=== PATIENT | female | born 1945 | race Caucasian/White ===

== ENCOUNTER 2016-06-19 08:47 | Day surgery (SDC) | payer MEDICARE, BC ==
[2016-06-19] MEDS: KETOROLAC 0.45% OPHTH DROPS OPTH ONE (09:15)
[2016-06-19] MEDS: TROPICAMIDE 1% OPHTH 2 ML DROPS OPTH ONE (09:15)
[2016-06-19] MEDS: CYCLOPENTOLATE 1% OPHTH DROPS 2 ML OPTH ONE (09:15)
[2016-06-19] MEDS: LACTATED RINGERS 500 ML IV ONE (09:21)
[2016-06-19] MEDS ORDERED: LIDOCAINE-MPF 2% 5 ML VIAL IM ONE (10:10)
[2016-06-19] MEDS ORDERED: PROPOFOL 200 MG/20 ML VIAL IVP ONE (10:10)
[2016-06-19] MEDS ORDERED: MIDAZOLAM 2 MG/2 ML VIAL IVP ONE (10:10)
[2016-06-19] MEDS: PROPARACAINE 0.5% OPHTH DROPS 15 ML OPTH ONE (10:20)
[2016-06-19] MEDS: levoFLOXacin 0.5% OPHTH DROPS 5 ML OPTH ONE (10:20)
[2016-06-19] MEDS: CHONDR SULF/HYALURONATE SYRINGE IO ONE (10:20)
[2016-06-19] MEDS: EPINEPHrine 1 MG/ML AMP IO ONE (10:20)
[2016-06-19] MEDS: BRIMONIDINE 0.2% OPHTH DROPS 5 ML OPTH ONE (10:20)
[2016-06-19] MEDS: TETRACAINE OPHTH DROPS 2 ML OPTH ONE (10:20)
[2016-06-19] MEDS: BSS/LIDOCAINE/EPINEPHRINE 1 ML SYRINGE IO ONE (10:20)
[2016-06-19 10:56] VITALS: BP 153/86
--- NOTE | 2016-06-19 13:39 | OPERATIVE REPORT ---
DATE OF SURGERY: 06/19/2016 00:00:00 PREOPERATIVE DIAGNOSIS: Visually significant cataract, right eye. POSTOPERATIVE DIAGNOSIS: Visually significant cataract, right eye. NAME OF PROCEDURE: Cataract extraction with intraocular lens implant, right eye. SURGEON: Daniel Clemons MD. ANESTHESIA: Topical with IV sedation. ESTIMATED BLOOD LOSS: None. COMPLICATIONS: None. LENS USED: AU00T0, 25.0 diopter lens, serial #[id number]. OPERATIVE TECHNIQUE: This is a patient who suffers from a visually significant cataract in the right eye. Operative site was marked, and informed consent was reviewed in the preoperative area. The patie nt was then taken back to the operating room in stable condition, where a time-out was performed. Pro paracaine eyedrops were placed in each of the eyes, and the right eye was prepped and draped in the u sual sterile ophthalmic fashion. A paracentesis wound was made, and the anterior chamber was filled with epinephrine Shugarcaine. The anterior chamber was then filled with viscoelastic. A 2.4 mm blade was used to make a corneal incisio n at the temporal position. A bent cystotome was used to start a capsulorrhexis, and Utrata forceps w ere used to create a continuous curvilinear capsulorrhexis. BSS on a blunt-tipped cannula was used to hydrodissect the nucleus from the capsular bag. Phacoemulsification was used to divide the nucleus i nto quadrants and each of the quadrants removed using phacoemulsification. Irrigation and aspiration was used to remove the residual cortex, and the capsular bag was polished with the silicone I/A tip. Capsular bag was filled with viscoelastic, and an AU00T0, 25.0 diopter lens, serial #[id number] was injected in the capsular bag. The lens was centered based on the corneal light reflex and irrigation and aspiration was used to remove the residual viscoelastic. The anterior chamber was filled with bal anced salt solution, and the centration of the lines was double checked. Wounds were hydrated and pro german to be watertight. A drop of ofloxacin and a drop of brimonidine were placed in the operative eye. A shield was placed over the eye, and the patient was taken to postoperative care in stable conditio n. JOB #: [id number] EXT JOB #:[id number]
== END 2016-06-19 08:48 | disposition home or self-care (01) ==
LOC: SDS 08:47
PROVIDERS: ATTEND Ophthalmology
PROC: 08RJ3JZ Replacement of Right Lens with Synthetic Substitute, Percutaneous Approach (ICD-10-PCS; principal; 2016-06-19 09:45)
DX: H26.8 Other specified cataract (principal); E66.9 Obesity, unspecified; M19.90 Unspecified osteoarthritis, unspecified site; L30.9 Dermatitis, unspecified

== ENCOUNTER 2016-07-03 09:30 | Day surgery (SDC) | payer MEDICARE, BC ==
[2016-07-03] MEDS ORDERED: LACTATED RINGERS 500 ML IV ONE (09:35)
[2016-07-03] MEDS ORDERED: KETOROLAC 0.45% OPHTH DROPS OPTH ONE (09:45)
[2016-07-03] MEDS ORDERED: CYCLOPENTOLATE 1% OPHTH DROPS 2 ML OPTH ONE (09:45)
[2016-07-03] MEDS ORDERED: TROPICAMIDE 1% OPHTH 2 ML DROPS OPTH ONE (09:45)
[2016-07-03] MEDS ORDERED: PROPOFOL 200 MG/20 ML VIAL IVP ONE (10:15)
[2016-07-03] MEDS ORDERED: LIDOCAINE-MPF 2% 5 ML VIAL IM ONE (10:15)
[2016-07-03] MEDS ORDERED: MIDAZOLAM 2 MG/2 ML VIAL IVP ONE (10:15)
[2016-07-03] MEDS ORDERED: EPINEPHrine 1 MG/ML AMP IO ONE (10:18)
[2016-07-03] MEDS ORDERED: PROPARACAINE 0.5% OPHTH DROPS 15 ML OPTH ONE (10:18)
[2016-07-03] MEDS ORDERED: BRIMONIDINE 0.2% OPHTH DROPS 5 ML OPTH ONE (10:18)
[2016-07-03] MEDS ORDERED: TETRACAINE OPHTH DROPS 2 ML OPTH ONE (10:19)
[2016-07-03] MEDS ORDERED: levoFLOXacin 0.5% OPHTH DROPS 5 ML OPTH ONE (10:19)
[2016-07-03] MEDS ORDERED: CHONDR SULF/HYALURONATE SYRINGE IO ONE (10:19)
[2016-07-03] MEDS ORDERED: BSS/LIDOCAINE/EPINEPHRINE 1 ML SYRINGE IO ONE (10:19)
== END 2016-07-03 09:31 | disposition home or self-care (01) ==
PROC: 08RK3JZ Replacement of Left Lens with Synthetic Substitute, Percutaneous Approach (ICD-10-PCS; principal; 2016-07-03 10:30)
DX: H26.9 Unspecified cataract (principal); E66.9 Obesity, unspecified; Z68.41 Body mass index [BMI] 40.0-44.9, adult; M19.90 Unspecified osteoarthritis, unspecified site
CPT/HCPCS: 66984; V2632

== ENCOUNTER 2016-10-29 08:52 | Outpatient (CLI) | payer MEDICARE, BC ==
--- NOTE | 2016-10-30 15:11 | DEXA Report ---
DEXA SCAN: 10/29/2016 CLINICAL HISTORY: A 71-year-old female, postmenopausal. Patient had a hysterectomy at age 50. TECHNIQUE: Dual energy x-ray absorptiometry (DXA) was performed on a [employer] system. Regions measured are the AP spine, femoral neck, and, if needed, forearm. COMPARISON: . In accordance with the International Society for Clinical Densitometry (ISCD) guidelines, data from previous exams may be reanalyzed using current recommendations and techniques. This is done to allow a more accurate basis for comparison with the current study. FINDINGS: The data for the lumbar spine is as follows: REGION BMD (g/cm/cm) T-SCORE Z-SCORE L1 0.960 -1.4 -0.9 L2 1.126 -0.6 -0.1 L3 1.162 -0.3 0.2 L4 1.213 0.1 0.7 TOTAL 1.122 -0.5 0.1 NOTE: All evaluable vertebrae are used for classification. The data for the hip is as follows: REGION BMD (g/cm/cm) T-SCORE Z-SCORE Neck 0.824 -1.5 -0.5 TOTAL 1.046 0.3 1.0 NOTE: The femoral neck or total proximal femur, whichever is lowest, is used for classification. * Denotes significant change at the 95% confidence level. Denotes dissimilar scan types or analysis methods. FINDINGS: Patient's bone mineral density is consistent with osteopenia. IMPRESSION: OSTEOPENIA. MILD INCREASED FRACTURE RISK. RECOMMENDATION: Patients with diagnosis of osteoporosis or osteopenia should have regular bone mineral density assessment. For those eligible for Medicare, routine testing is allowed once every 2 years. Testing frequency can be increased for patients who have rapidly progressing disease or for those who are receiving medical therapy to restore bone mass. COMMENT: World Health Organization (WHO) definitions for osteoporosis and osteopenia: NORMAL BMD: T-score at -1.0 or higher, fracture risk is low. OSTEOPENIA BMD: T-score between -1.0 and -2.5, fracture risk is increased. OSTEOPOROSIS BMD: T-score at -2.5 or lower, fracture risk high. National Osteoporosis Foundation recommends: 1. Obtain adequate dietary calcium (at least 1200 mg per day) and vitamin D (400 -800 international units per day). 2. Participate, as appropriate, in regular weightbearing and muscle- strengthening exercise. 3. Avoid tobacco use and reduce alcohol and caffeine intake. 4. For more detailed information see the website at www.NOF.org. MTDD
== END 2016-10-29 08:53 | disposition home or self-care (01) ==
LOC: DI 08:52
PROVIDERS: ATTEND Physician Assistant Medical
DX: M85.88 Other specified disorders of bone density and structure, other site (principal)
CPT/HCPCS: 77080

== ENCOUNTER 2016-10-29 08:54 | Outpatient (CLI) | payer MEDICARE, BC | END 2016-10-29 08:55 | disposition home or self-care (01) | LOC: DI 08:54 | PROVIDERS: ATTEND Physician Assistant Medical | DX: Z53.9 Procedure and treatment not carried out, unspecified reason (principal) ==

== ENCOUNTER 2016-12-16 14:19 | Outpatient (CLI) | payer MEDICARE, BC ==
--- NOTE | 2016-12-17 21:37 | Mammography Report ---
DIGITAL SCREENING MAMMOGRAM: 12/16/2016 CLINICAL INDICATION: A 71-year-old with history of benign left breast biopsy for screening. COMPARISON: 11/2015, 10/2014, 10/2013, 08/2012, 08/2011, 08/2010, 07/2009, 07/2008. TECHNIQUE: Routine CC and MLO projections were obtained of the breasts. FINDINGS: Parenchymal tissue within the breasts is predominantly fatty replaced. There are no domin ant masses, suspicious microcalcifications, or secondary signs of malignancy. In comparison to the p revious studies, there are no significant changes. IMPRESSION: NO MAMMOGRAPHIC EVIDENCE OF MALIGNANCY. NO SIGNIFICANT INTERVAL CHANGES. RECOMMENDATION: Screening mammography is recommended annually. BIRADS category 1 - negative. STANDARD QUALIFYING STATEMENTS 1. This examination was reviewed with the aid of Computed-Aided Detection (CAD). 2. A negative or benign imaging report should not delay biopsy if clinically suspicious findings are present. Consider surgical consultation if warranted. More than 5% of cancers are not identified b y imaging. 3. Dense breasts may obscure an underlying neoplasm. JOB #: [id number] EXT JOB #:[id number]
== END 2016-12-16 14:20 | disposition home or self-care (01) ==
LOC: DI.N 14:19
PROVIDERS: ATTEND Physician Assistant Medical
DX: Z12.31 Encounter for screening mammogram for malignant neoplasm of breast (principal)
CPT/HCPCS: 77067

== ENCOUNTER 2019-03-02 10:21 | Outpatient (CLI) | payer MEDICARE, BC ==
--- NOTE | 2019-03-03 08:57 | Mammography Report ---
Reason: SCREENING MAMMO Procedure Date: 03/02/2019 Accession Number: [id number] / [id number] Procedure: MGN - Screening Mammo Dig Bilat CPT Code: FULL RESULT: EXAM: Screening Mammo Dig Bilat DATE: 03/02/2019 10:56 AM CLINICAL HISTORY: Screening encounter. History of benign left breast biopsy. TECHNIQUE: (B) - Bilateral CC and MLO views were obtained. COMPARISON: 12/16/2016 through 10/22/2013. PARENCHYMAL PATTERN: (F) - The breast(s) demonstrate(s) diffuse fatty replacement. FINDINGS: Postsurgical changes in the left breast are stable. There are no suspicious masses, calcifications, or areas of distortion. IMPRESSION: Benign findings. BI-RADS category 2. RECOMMENDATION: (ANNUAL) - Recommend routine annual screening mammography. BI-RADS CATEGORY: (2) - Benign Findings. STANDARD QUALIFYING STATEMENTS: 1. This examination was not reviewed with the aid of Computer-Aided Detection (CAD). 2. A negative or benign imaging report should not preclude biopsy if clinically suspicious findings are present. 3. Dense breasts may obscure an underlying neoplasm. 4. This examination was reviewed without the aid of 3D breast imaging (tomosynthesis).
== END 2019-03-02 10:22 | disposition home or self-care (01) ==
LOC: DI.N 10:21
DX: Z12.31 Encounter for screening mammogram for malignant neoplasm of breast (principal)
CPT/HCPCS: 77067

== ENCOUNTER 2019-03-03 09:36 | Outpatient (CLI) | payer MEDICARE, BC ==
--- NOTE | 2019-03-04 08:38 | DEXA Report ---
Reason: BONE DISORDER Procedure Date: 03/03/2019 Accession Number: [id number] / [id number] Procedure: DEX - Dexa Spine and/or Hip CPT Code: FULL RESULT: EXAM: Dexa Spine and/or Hip DATE: 03/03/2019 10:10 AM CLINICAL HISTORY: BONE DISORDER TECHNIQUE: Dual energy x-ray absorptiometry (DXA) was performed on a [employer] System. Regions measured are the AP Spine, femoral neck, and if needed forearm. COMPARISON: 10/29/2016. In accordance with the International Society for Clinical Densitometry (ISCD) guidelines, data from previous exams may be reanalyzed using current recommendations and techniques. This is done to allow a more accurate basis for comparison with the current study. FINDINGS: The data for the lumbar spine is as follows: BMD (g/cm/cm) T-SCORE Z-SCORE REGION L1 1.010 -1.0 -0.4 L2 1.129 -0.6 0.1 L3 1.245 0.4 1.0 L4 1.277 0.6 1.3 TOTAL 1.178 0.0 0.6 NOTE: All evaluable vertebrae are used for classification The data for the hip is as follows: BMD (g/cm/cm) T-SCORE Z-SCORE REGION Neck 0.884 -1.1 0.1 TOTAL 1.040 0.3 1.1 NOTE: The femoral neck or total proximal femur, whichever is lowest, is used for classification. DXA RESULTS SUMMARY: Spine SCAN DATE AGE BMD CHANGE VS CHANGE VS PREVIOUS PREVIOUS % [birth year]03/2019 [age] 1.178 0.056* 5.0* 10/29/2016 [age] 1[age]122 * Denotes significant change at the 95% confidence level. Denotes dissimilar scan types or analysis methods. DXA RESULTS SUMMARY: Hip SCAN DATE AGE BMD CHANGE VS CHANGE VS PREVIOUS PREVIOUS % [birth year]03/2019 [age] 1.040 -0.006 -0.6 10/29/2016 [age] 1.046 * Denotes significant change at the 95% confidence level. Denotes dissimilar scan types or analysis methods. IMPRESSION: THE WHO CLASSIFICATION BASED ON THE INTERNATIONAL REFERENCE STANDARD IS OSTEOPENIA. THE FRACTURE RISK IS INCREASED. RECOMMENDATION: Patients with diagnosis of osteoporosis or osteopenia should have regular bone mineral density assessment. For those eligible for Medicare, routine testing is allowed once every 2 years. Testing frequency can be increased for patients who have rapidly progressing disease or for those who are receiving medical therapy to restore bone mass. COMMENT: World Health Organization (WHO) definitions for osteoporosis and osteopenia: NORMAL BMD: T-score at -1.0 or higher, fracture risk is low OSTEOPENIA BMD: T-score between -1.0 and -2.5, fracture risk is increased. OSTEOPOROSIS BMD: T-score at -2.5 or lower, fracture risk is high. National Osteoporosis Foundation recommends: 1. Obtain adequate dietary calcium (at least 1200 mg per day) and vitamin D (400-800 international units per day). 2. Participate, as appropriate, in regular weightbearing and muscle-strengthening exercise. 3. Avoid tobacco use and reduce alcohol and caffeine intake. 4. For more detailed information see the website at www.NOF.org.
== END 2019-03-03 09:37 | disposition home or self-care (01) ==
LOC: DI 09:36
PROVIDERS: ATTEND Physician Assistant Medical
DX: M85.89 Other specified disorders of bone density and structure, multiple sites (principal)
CPT/HCPCS: 77080

== ENCOUNTER 2020-02-10 09:13 | Outpatient (CLI) | payer MEDICARE, BC ==
--- NOTE | 2020-02-10 12:19 | Mammography Report ---
BILATERAL DIGITAL SCREENING MAMMOGRAM 3D/2D: 02/10/2020 CLINICAL: Routine screening. Comparison is made to exams dated: 03/02/2019 mammogram, 12/16/2016 mammogram, 12/04/2015 mammogram, an d 11/02/2014 mammogram - [facility]. The tissue of both breasts is predominantly fa tty. No significant masses, calcifications, or other findings are seen in either breast. There has been no significant interval change. IMPRESSION: NEGATIVE There is no mammographic evidence of malignancy. A 1 year screening mammogram is recommended. This exam was interpreted at Station ID: [id number]. NOTE: For mammograms, a report in lay terms will be sent to the patient. Approximately 15% of breast malignancies will not be visualized mammographically. In the management of a palpable breast mass, a negative mammogram must not discourage biopsy of a clinically suspicious lesion. Electronically Signed By: Jaret Garcia M.D. aty/penrad:02/10/2020 11:07:39 ACR BI-RADS Category 1: Negative 3341F PARENCHYMAL PATTERN: (F) - The breast(s) demonstrate(s) diffuse fatty replacement. BI-RADS CATEGORY: (1) - 1 RECOMMENDATION: (ANNUAL) - Recommend routine annual screening mammography. [id number] 1 year screening LATERALITY: (B)
== END 2020-02-10 09:14 | disposition home or self-care (01) ==
LOC: DI.N 09:13
DX: Z12.31 Encounter for screening mammogram for malignant neoplasm of breast (principal)
CPT/HCPCS: 77063; 77067

== ENCOUNTER 2021-02-08 10:19 | Outpatient (CLI) | payer MEDICARE, BC ==
--- NOTE | 2021-02-09 12:21 | Mammography Report ---
BILATERAL DIGITAL SCREENING MAMMOGRAM 3D/2D: 02/08/2021 CLINICAL: Routine screening. Comparison is made to exams dated: 02/10/2020 mammogram, 03/02/2019 mammogram, 12/16/2016 mammogram, 11/08 mammogram, 11/02/2014 mammogram, and 10/22/2013 mammogram - [facility]. The t issue of both breasts is predominantly fatty. No significant masses, calcifications, or other findings are seen in either breast. There has been no significant interval change. IMPRESSION: NEGATIVE There is no mammographic evidence of malignancy. A 1 year screening mammogram is recommended. This exam was interpreted at Station ID: [id number]. NOTE: For mammograms, a report in lay terms will be sent to the patient. Approximately 15% of breast malignancies will not be visualized mammographically. In the management of a palpable breast mass, a negative mammogram must not discourage biopsy of a clinically suspicious lesion. Electronically Signed By: Jaret Garcia M.D. aty/jerome:02/08/2021 13:12:52 ACR BI-RADS Category 1: Negative 3341F PARENCHYMAL PATTERN: (F) - The breast(s) demonstrate(s) diffuse fatty replacement. BI-RADS CATEGORY: (1) - 1 RECOMMENDATION: (ANNUAL) - Recommend routine annual screening mammography. [id number] 1 year screening LATERALITY: (B)
== END 2021-02-08 10:20 | disposition home or self-care (01) ==
LOC: DI.N 10:19
DX: Z12.31 Encounter for screening mammogram for malignant neoplasm of breast (principal)

== ENCOUNTER 2023-04-28 09:18 | Outpatient (CLI) | payer MEDICARE, BC ==
--- NOTE | 2023-04-30 15:37 | Mammography Report ---
BILATERAL DIGITAL SCREENING MAMMOGRAM 3D/2D: 04/28/2023 CLINICAL: Routine screening. Comparison is made to exams dated: 04/22/2022 mammogram, 02/08/2021 mammogram, 02/10/2020 mammogram, 02/08 mammogram, 12/16/2016 mammogram, and 12/04/2015 mammogram - Located within [facility]. Both breasts are almost entirely fatty (category a/<25% glandular tissue). No significant masses, calcifications, or other findings are seen in either breast. IMPRESSION: NEGATIVE There is no mammographic evidence of malignancy. A 1 year screening mammogram is recommended. Based on the Tyrer Cuzick model (a risk assessment model) the patients lifetime risk is 3.5% and her 10 year risk is 0.0%. According to the ACR, ACS, and NCCN guidelines, an annual breast MRI exam richard g with mammogram is recommended if the patients lifetime risk is 20% or greater. This exam was interpreted at Station ID: [id number]. NOTE: For mammograms, a report in lay terms will be sent to the patient. Approximately 15% of breast malignancies will not be visualized mammographically. In the management of a palpable breast mass, a negative mammogram must not discourage biopsy of a clinically suspicious lesion. Electronically Signed By: Lavinia Anne M.D., PH.D eb/penrad:04/29/2023 23:28:42 letter sent: No_Letter ACR BI-RADS Category 1: Negative 3341F PARENCHYMAL PATTERN: (F) - The breast(s) demonstrate(s) diffuse fatty replacement. BI-RADS CATEGORY: (1) - 1 Mammogram [id number] 1 year screening LATERALITY: (B)
== END 2023-04-28 09:19 | disposition home or self-care (01) ==
LOC: DI.N 09:18
DX: Z12.31 Encounter for screening mammogram for malignant neoplasm of breast (principal)

== ENCOUNTER 2023-08-26 09:24 | Outpatient (CLI) | payer MEDICARE, BC ==
[2023-08-26 12:11] LABS: EOSINOPHILS # (AUTO) 0.1 10^3/uL (0.0-0.7); EOSINOPHILS % (AUTO) 2.2 %; HCT - HEMATOCRIT 47.4 % (37.0-47.0); HGB - HEMOGLOBIN 14.7 g/dL (12.0-16.0); LYMPHOCYTES # (AUTO) 1.8 10^3/uL (1.5-3.5); LYMPHOCYTES % (AUTO) 42.2 %; MEAN CORPUSCULAR HEMOGLOBIN 28.9 pg (27.0-31.0); MEAN CORPUSCULAR VOLUME 93.1 fL (81.0-99.0); MEAN PLATELET VOLUME 10.7 fL (7.9-10.8); MONOCYTES # (AUTO) 0.6 10^3/uL (0.0-1.0); MONOCYTES % (AUTO) 13.7 %; NEUTROPHILS # (AUTO) 1.7 10^3/uL (1.5-6.6); NEUTROPHILS % (AUTO) 40.4 %; PLT - PLATELET COUNT 244 10^3/uL (130-450); RED BLOOD COUNT 5.09 10^6/uL (4.20-5.40); RED CELL DISTRIBUTION WIDTH 14.5 % (12.0-15.0); WHITE BLOOD COUNT 4.2 x10^3/uL (4.8-10.8)
[2023-08-26 12:30] LABS: ALBUMIN 4.5 g/dL (3.2-5.5); ALBUMIN/GLOBULIN RATIO 1.4 (1.0-2.2); ALKALINE PHOSPHATASE 49 IU/L (42-121); ALT ALANINE AMINOTRANSFERASE 36 IU/L (10-60); AST ASPARTATE AMINOTRANSFERASE 25 IU/L (10-42); BILIRUBIN,TOTAL 0.3 mg/dL (0.2-1.0); BUN - BLOOD UREA NITROGEN 22 mg/dL (6-20); CALCIUM 9.9 mg/dL (8.5-10.3); CARBON DIOXIDE - CO2 28 mmol/L (21-32); CHLORIDE 104 mmol/L (101-111); CHOL/HDL RATIO 2.8 (<4.4); CHOLESTEROL 185 mg/dL; CREATININE 0.9 mg/dL (0.6-1.3); GFR - MDRD 61 (>89); GLUCOSE 121 mg/dL (74-104); HDL CHOLESTEROL 66 mg/dL; LDL CHOLESTEROL,CALCULATED 90 mg/dL; LDL/HDL RATIO 1.4 (<4.4); POTASSIUM 4.6 mmol/L (3.5-4.5); SODIUM 137 mmol/L (135-145); TOTAL PROTEIN 7.8 g/dL (6.4-8.9); TRIGLYCERIDES 144 mg/dL (48-352); VLDL CHOLESTEROL 29 mg/dL
[2023-08-26 12:51] LABS: ESTIMATED AVERAGE GLUCOSE 128 mg/dL (70-100); HEMOGLOBIN A1c% 6.1 % (4.27-6.07)
== END 2023-08-26 09:25 | disposition home or self-care (01) ==
LOC: LAB.N 09:24
PROVIDERS: ATTEND Physician Assistant
DX: I10 Essential (primary) hypertension (principal); Z13.220 Encounter for screening for lipoid disorders; R73.9 Hyperglycemia, unspecified
CPT/HCPCS: 36415; 80053; 80061; 83036; 83721; 85025

== ENCOUNTER 2023-12-04 10:49 | Outpatient (CLI) | payer MEDICARE, BC ==
--- NOTE | 2023-12-04 12:49 | DEXA Report ---
PROCEDURE: Dexa Spine and/or Hip INDICATIONS: OSTEOPENIA TECHNIQUE: Dual energy x-ray absorptiometry (DXA) was performed on a [employer] System. Regions measur ed are the AP Spine, femoral neck, and if needed forearm. COMPARISON: DEXA 03/03/2019 FINDINGS: Lumbar Spine: Bone Mineral Density: 1.235 g/cm/cm,T score: 0.5, compared to 0. Left Femoral Neck: Bone Mineral Density: 0.862 g/cm/cm, T score: -1.3, compared to -1.1. Left Hip: Bone Mineral Density: 1.010 g/cm/cm,T score: 0 compared to -0.3. (T score greater or equal to -1.0: NORMAL) (T score from -1.1 to -2.4: OSTEOPENIA) (T score less than or equal to -2.5 to: OSTEOPOROSIS) Impression: By WHO criteria, this patient has minimal osteopenia in the left femoral neck, progressive. Patients with diagnosis of osteoporosis or osteopenia should have regular bone mineral density assess ment. For those eligible for Medicare, routine testing is allowed once every 2 years. Testing frequ ency can be increased for patients who have rapidly progressing disease or for those who are receivin g medical therapy to restore bone mass. Reviewed by: Breanne Brewster MD on 12/04/2023 12:47 PM PDT Approved by: Breanne Brewster MD on 12/04/2023 12:47 PM PDT Station ID: [id number]
== END 2023-12-04 10:50 | disposition home or self-care (01) ==
LOC: DI 10:49
PROVIDERS: ATTEND Physician Assistant
DX: M85.88 Other specified disorders of bone density and structure, other site (principal)

== ENCOUNTER 2024-01-13 05:28 | Emergency (ER) | payer MEDICARE, BC ==
[2024-01-13 05:45] VITALS: O2SAT 97
[2024-01-13] MEDS: DEXAMETHASONE 10 MG/ML VIAL PO STA (06:01)
[2024-01-13] MEDS: CHERRY SYRUP 10 ML UDC PO ONE (06:01)
[2024-01-13] MEDS: BENZONATATE 100 MG CAPSULE PO STA (06:01)
--- NOTE | 2024-01-13 06:01 | ED Physician Documentation ---
PD HPI URI - Stated complaint Stated Complaint: COUGH/SOA - Chief complaint Chief Complaint: Resp - History obtained from History obtained from: Patient, Family () - History of Present Illness Timing - onset: How many weeks ago (2) Timing duration: Weeks (2) Timing details: Gradual onset, Still present, Waxing and waning Associated symptoms: Dry cough, Dyspnea Contributing factors: Sick contact (She and sick with COVID last week) Improves by: Rest Worsened by: Activity Similar symptoms before: Has not had sx before Recently seen: Clinic - Additional information Additional information: Sergio Conde is a 78-year-old female history of hypertension who presents to the emergency department today with coughing paroxysms that are enough to cause her significant dyspnea. She reports that she and her both had COVID last week. Her has recovered entirely and Renita has had a persistent cough. Her cough is worsening and she is not producing any phlegm. She feels that the cough she is having now is worse than when she had COVID. She came to the emergency department after a coughing paroxysm that was so bad that she had a hard time breathing. Review of Systems Constitutional: denies: Fever Eyes: denies: Decreased vision Ears: denies: Ear pain Nose: denies: Rhinorrhea / runny nose, Congestion Throat: reports: Sore throat Cardiac: denies: Chest pain / pressure, Palpitations Respiratory: reports: Dyspnea, Cough GI: denies: Abdominal Pain, Nausea, Vomiting, Constipation, Diarrhea : denies: Dysuria, Frequency PD PAST MEDICAL HISTORY - Past Medical History Cardiovascular: None Respiratory: None Endocrine/Autoimmune: None GI: None : None HEENT: Chronic vision loss Psych: None Musculoskeletal: Osteoarthritis Derm: Eczema - Past Surgical History Past Surgical History: Yes Ortho: Knee replacement /DEALMAKER: section, Hysterectomy HEENT: Cataracts, Tonsil/Adenoidectomy - Present Medications Home Medications: Ambulatory Orders Medication Instructions Recorded Confirmed Ibuprofen [Motrin] 600 mg PO Q6H PRN 06/19/16 07/03/16 Aspirin 325 mg PO DAILY 07/03/16 07/03/16 Azithromycin [Zithromax] 250 mg PO DAILY #6 tablet 01/13/24 Benzonatate [Tessalon] 100 - 200 mg PO Q6HR PRN #30 cap 01/13/24 - Allergies Allergies/Adverse Reactions: Allergies Allergy/AdvReac Type Severity Reaction Status Date / Time tetanus toxoid, adsorbed AdvReac Intermediate Rash Verified 01/13/24 05:31 - Social History Does the pt smoke?: No Smoking Status: Never smoker Does the pt drink ETOH?: No Does the pt have substance abuse?: No - Immunizations Immunizations are current?: Yes - POLST Patient has POLST: Yes POLST Status: Full Code PD ED PE NORMAL - Vitals Vital signs reviewed: Yes (hypertensive ) - General General: Alert and oriented X 3, No acute distress, Well developed/nourished - HEENT HEENT: Atraumatic, PERRL, EOMI, Ears normal, Moist mucous membranes, Pharynx benign, Dentition benign - Neck Neck: Supple, no meningeal sign, No bony TTP - Cardiac Cardiac: RRR, No murmur - Respiratory Respiratory: No respiratory distress, Other (rhonchi bibasilar worse on the left) - Abdomen Abdomen: Soft, Non tender - Back Back: No CVA TTP, No spinal TTP - Derm Derm: Normal color, Warm and dry, No rash - Extremities Extremities: No deformity, No edema - Neuro Neuro: Alert and oriented X 3, sales assoc 2-12 intact, No motor deficit, No sensory deficit, Normal speech Eye Opening: Spontaneous Motor: Obeys Commands Verbal: Oriented GCS Score: 15 - Psych Psych: Normal mood, Normal affect Results - Vitals Vitals: Vital Signs - 24 hr 01/13/24 01/13/24 05:32 06:33 Temperature 35.9 C L 36.5 C Heart Rate 96 89 Respiratory 16 18 Rate Blood Pressure 198/73 H 173/86 H O2 Saturation 97 97 Oxygen O2 Source Room air - Rads (name of study) chest Relevant Findings:: Prelim report reviewed (Impression: Normal chest.), EMP independent interpretation of test (course markings on the right consistent with atypical pneumonia ) PD Medical Decision Making - ED course Complexity details: reviewed results, re-evaluated patient, considered differential, d/w patient, d/w family ED course: 78-year-old Sergio Lamas presents to the emergency department this morning with coughing paroxysms that were so bad she was having a hard time catching her breath. On examination I did not find any upper respiratory findings of concern with the exception of some tender adenopathy more on the right side. I did find on exam bibasilar rhonchi worse on the right than the left and this corresponded with the finding on the chest x-ray of some streak-like artifact which in general was worse on the entire right side than the left. I felt compelled to treat the patient for atypical pneumonia and E scribed azithromycin. I also administered dexamethasone and benzoate to the patient here in the emergency department and she had some response to treatment prior to discharge. Departure - Departure Disposition: 01 Home, Self Care Clinical Impression: Atypical pneumonia Condition: Stable Instructions: ED Bronchitis Asthmatic Follow-Up: Dayanna Hdez PA-C [Provider Admit Priv/Credential] - Prescriptions: Benzonatate [Tessalon] 100 - 200 mg PO Q6HR PRN #30 cap PRN Reason: Cough Azithromycin [Zithromax] 250 mg PO DAILY #6 tablet Comments: Renita, today it looks like you have an atypical pneumonia with a streak-like artifact in your right lung. I have E scribed a specific antibiotic for this to the [facility] in [place]. We have also E scribed some benzoate for control of your cough. Forms: PCP List Discharge Date/Time: 01/13/24 06:36
[2024-01-13 06:36] VITALS: BP 173/86
--- NOTE | 2024-01-13 09:49 | XRAY Report ---
PROCEDURE: Chest 2V INDICATIONS: cough LLL rhonchi TECHNIQUE: 2 views of the chest were acquired. COMPARISON: Chest x-ray 06/17/2015. FINDINGS: Surgical changes and devices: None. Lungs and pleura: No pleural effusions or pneumothorax. Lungs are clear. Mediastinum: Mediastinal contours appear normal. Heart size is normal. Bones and chest wall: No suspicious bony lesions. Overlying soft tissues appear unremarkable. IMPRESSION: No acute cardiopulmonary process. Reviewed by: Amaris Yuan MD, PhD on 01/13/2024 9:48 AM PDT Approved by: Amaris Yuan MD, PhD on 01/13/2024 9:48 AM PDT Station ID: [id number]
== END 2024-01-13 06:36 | disposition home or self-care (01) ==
LOC: ED 05:28
DX: J18.9 Pneumonia, unspecified organism (principal); Z79.82 Long term (current) use of aspirin
CPT/HCPCS: 99283; 99284